=== PATIENT | female | born 1990 | race American Indian/Alaskan Native ===

== ENCOUNTER 2021-08-17 15:31 | Emergency (ER) | payer SELFPAY ==
[2021-08-17] MEDS ORDERED: IBUPROFEN 800 MG TAB PO ONE (16:38)
[2021-08-17] MEDS ORDERED: TETANUS,DIPH,PERTUSS(ACELL) VACCINE 0.5 ML SYRINGE IM ONE (16:38)
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
[2021-08-17 17:35] VITALS: BP 133/81
== END 2021-08-17 17:41 | disposition home or self-care (01) ==
LOC: ED 15:31
DX: T24.212A Burn of second degree of left thigh, initial encounter (principal); T31.0 Burns involving less than 10% of body surface; Z79.899 Other long term (current) drug therapy; X08.8XXA Exposure to other specified smoke, fire and flames, initial encounter; Y93.89 Activity, other specified; Y92.89 Other specified places as the place of occurrence of the external cause; Y99.8 Other external cause status
CPT/HCPCS: 90471; 90715; 99282